=== PATIENT | female | born 1960 | race Caucasian/White ===

== ENCOUNTER 2024-09-02 07:32 | Emergency (ER) | payer BC, OTHER | END 2024-09-02 08:55 | disposition home or self-care (01) | LOC: VM.ED 07:32 | DX: S60.221A Contusion of right hand, initial encounter (principal); Z79.82 Long term (current) use of aspirin; Z79.890 Hormone replacement therapy; Z79.899 Other long term (current) drug therapy; W22.8XXA Striking against or struck by other objects, initial encounter | CPT/HCPCS: 10160; 73130-RT; 99283 ==